=== PATIENT | female | born 1990 | race Caucasian/White ===

== ENCOUNTER 2024-06-15 16:44 | Emergency (ER) | payer MEDICAID ==
[~2024-06-15] VITALS: Ht 165.1 cm; Wt 50.0 kg
[2024-06-15 16:45] VITALS: O2SAT 100
[2024-06-15 20:13] LABS: BASOPHILS % 1.1 % (0.0-2.0); EOSINOPHILS % 0.4 % (0.0-5.0); HEMOGLOBIN. 10.8 g/dL (12.0-16.0); LYMPHOCYTES % 15.4 % (20.0-50.0); MEAN CORPUSCULAR HEMOGLOBIN 32.1 pg (28.0-32.0); MEAN CORPUSCULAR HGB CONC 33.9 g/dL (31.0-37.0); MEAN CORPUSCULAR VOLUME 94.6 fL (81.0-99.0); MEAN PLATELET VOLUME 9.2 fl (7.4-10.4); MONOCYTES % 5.7 % (2.0-8.0); NEUTROPHILS % 77.4 % (40.0-76.0); PLATELET 222 x1000/uL (130-400); RED BLOOD CELL COUNT 3.38 mill/uL (4.2-5.4); RED CELL DISTRIBUTION WIDTH 13.1 % (11.6-14.6); WHITE BLOOD COUNT 4.3 x1000/uL (4.5-11.0)
[2024-06-15 20:22] LABS: CHLORIDE 103 mEq/L (98-107); POTASSIUM 4.8 mEq/L (3.5-5.1); SODIUM 136 mEq/L (136-145)
[2024-06-15 20:23] LABS: CALCIUM 8.9 mg/dL (8.7-10.4); CARBON DIOXIDE 27 mEq/L (21-32)
[2024-06-15 20:27] LABS: CREATININE 0.4 mg/dL (0.6-1.0)
[2024-06-15 20:28] LABS: GLUCOSE 106 mg/dL (70-105); UREA NITROGEN BLOOD 7 mg/dL (9-23)
[2024-06-15] MEDS: LEVETIRACETAM 500MG TABLET PO NR (21:07)
[2024-06-15] MEDS: CARBAMAZEPINE 100MG TABLET CHEW PO NR (21:25)
[2024-06-15 22:55] VITALS: BP 118/70; PULSE 71; RESP 20; TEMP 36.9; O2SAT 100
== END 2024-06-15 23:08 | disposition home or self-care (01) ==
LOC: ER 16:44
DX: G40.909 Epilepsy, unspecified, not intractable, without status epilepticus (principal); J45.909 Unspecified asthma, uncomplicated; Z79.899 Other long term (current) drug therapy
CPT/HCPCS: 36415; 80048; 80156; 85025; 86850; 86900; 99283